=== PATIENT | female | born 1940 | race Two or more races ===

== ENCOUNTER 2018-05-11 15:24 | Emergency (ER) | payer OTHER ==
[~2018-05-11] VITALS: Ht 154.9 cm; Wt 71.7 kg
[2018-05-11] MEDS ORDERED: DILANTIN100 MG (15:41)
[2018-05-11] MEDS ORDERED: METOPROLOL SUC100 MG (15:41)
[2018-05-11] MEDS ORDERED: LOSARTAN POTASS50 MG (15:41)
[2018-05-11] MEDS ORDERED: FORTAMET1000 MG (15:41)
[2018-05-11] MEDS ORDERED: SIMVASTATIN40 MG (15:42)
[2018-05-11] MEDS ORDERED: ZETIA10 MG (15:42)
== END 2018-05-11 16:49 | disposition home or self-care (01) ==
LOC: ER 15:24
DX: H10.89 Other conjunctivitis (principal); H01.002 Unspecified blepharitis right lower eyelid